=== PATIENT | male | born 1965 | race Native Hawaiian/Other Pacific Islander ===

== ENCOUNTER 2018-02-16 15:25 | Emergency (ER) | payer SELFPAY ==
[2018-02-16 15:26] VITALS: BMI 24.3
[2018-02-16 15:49] VITALS: RESP 16
--- NOTE | 2018-02-16 16:00 | C.PDOC ---
History Of Present Illness Brought in by ambulance for public intoxication. Pt reports he drinks every day. He was drinking vodka today and does not know why he was picked up. He denies fall or pain. He offers no complaints. Per triage pt had slurred speech and usnteady gait. Time Seen by Provider: 02/16/18 15:36 Chief Complaint (Nursing): Substance Abuse History Per: Patient History/Exam Limitations: no limitations Current Symptoms Are (Timing): Better Modifying Factor(s): Alcohol Past Medical History Reviewed: Historical Data, Nursing Documentation, Vital Signs Vital Signs: Last Vital Signs Temp 98.5 F 02/16/18 15:37 Pulse 92 H 02/16/18 15:37 Resp 16 02/16/18 15:37 BP 116/78 02/16/18 15:37 Pulse Ox 97 02/16/18 15:37 - Medical History PMH: No Chronic Diseases Family History: States: Unknown Family Hx - Social History Hx Alcohol Use: Yes Hx Substance Use: No - Immunization History Hx Tetanus Toxoid Vaccination: No Hx Influenza Vaccination: No Hx Pneumococcal Vaccination: No Review Of Systems Except As Marked, All Systems Reviewed And Found Negative. (and as per HPI) Neurological: Negative for: Weakness, Numbness, Confusion, Seizures Physical Exam - Physical Exam Appears: Well, No Acute Distress Skin: Warm, Dry Head: Atraumatic, Normacephalic Eye(s): bilateral: PERRL, EOMI Oral Mucosa: Moist Lips: Normal Appearing Neck: Normal ROM, Trachea Midline Chest: Symmetrical, No Tenderness Cardiovascular: Rhythm Regular, No Murmur Respiratory: Normal Breath Sounds, No Wheezing Gastrointestinal/Abdominal: Soft, No Tenderness Back: Normal Inspection, No Decreased ROM Extremity: Normal ROM, No Deformity Neurological/Psych: Oriented x3, Normal Speech, Normal Motor, Normal Sensation Gait: Steady ED Course And Treatment O2 Sat by Pulse Oximetry: 97 Progress Note: On my evaluation pt is clinically stable, oriented x 3 with steady gait and no signs of withdrawal. Stable for dc. Disposition Counseled Patient/Family Regarding: Diagnosis - Disposition Disposition: HOME/ ROUTINE Disposition Time: 15:57 Condition: IMPROVED Instructions: Alcohol Abuse and Alcoholism (DC) - Clinical Impression Clinical Impression: Alcohol intoxication
[2018-02-16 16:26] VITALS: BP 124/85; PULSE 78; TEMP 98.6; O2SAT 98
== END 2018-02-16 16:26 | disposition home or self-care (01) ==
LOC: C.ER 15:25
DX: F10.129 Alcohol abuse with intoxication, unspecified (principal); Y90.9 Presence of alcohol in blood, level not specified